=== PATIENT | female | born 1940 | race Caucasian/White ===

== ENCOUNTER 2019-04-13 12:12 | Emergency (ER) | payer MEDICARE, OTHER ==
[~2019-04-13] VITALS: Ht 162.6 cm; Wt 74.8 kg
[~2019-04-13 12:12] MED LIST: AMLO5TAB9 PO; COLE1TAB2 PO; EZET10TA16 PO; GLIP5TAB13 PO; HYDR-3642 PO; HYDR-3976 PO; SITA1TAB6 PO; VALS160T2 PO
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
[2019-04-13] MEDS ORDERED: ACETAMINOPHEN ES 500 MG TABLET PO ONE (13:00)
[2019-04-13] MEDS ORDERED: IBUPROFEN 600 MG TABLET PO ONE ×2 (13:00→13:06)
[2019-04-13] MEDS ORDERED: ACETAMINOPHEN ES 500 MG TABLET ONE (13:06)
[2019-04-13 14:45] VITALS: BP 160/90
--- NOTE | 2019-04-13 14:45 | NUR ---
Patient discharged to home in stable condition. Written and verbal after care instructions given. Patient verbalizes understanding of instruction.
== END 2019-04-13 14:46 | disposition home or self-care (01) ==
LOC: ER 12:16
DX: S20.211A Contusion of right front wall of thorax, initial encounter (principal); S80.02XA Contusion of left knee, initial encounter; S80.01XA Contusion of right knee, initial encounter; I10 Essential (primary) hypertension; E11.9 Type 2 diabetes mellitus without complications; Z90.89 Acquired absence of other organs; Z98.890 Other specified postprocedural states; Z88.0 Allergy status to penicillin; Z79.899 Other long term (current) drug therapy; V49.49XA Driver injured in collision with other motor vehicles in traffic accident, initial encounter; Y93.89 Activity, other specified; Y92.413 State road as the place of occurrence of the external cause; Y99.8 Other external cause status
CPT/HCPCS: 71100-TC; 72050-TC; 73564-TC

== ENCOUNTER 2020-11-09 15:25 | Emergency (ER) | payer MEDICARE, OTHER ==
[~2020-11-09] VITALS: Ht 162.6 cm; Wt 75.3 kg
[~2020-11-09 15:25] MED LIST changes: +AMLO-212 PO; -AMLO5TAB9 PO; -EZET10TA16 PO; +EZET10TA6 PO
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
[2020-11-09] MEDS ORDERED: ACETAMINOPHEN ES 500 MG TABLET ONE (15:58)
[2020-11-09] MEDS ORDERED: ACETAMINOPHEN ES 500 MG TABLET PO ONE (16:00)
[2020-11-09 16:45] VITALS: BP 138/71
--- NOTE | 2020-11-09 16:46 | NUR ---
Patient discharged to home in stable condition. Written and verbal after care instructions given. Patient verbalizes understanding of instruction.
== END 2020-11-09 16:45 | disposition home or self-care (01) ==
LOC: ER 15:29
DX: R07.89 Other chest pain (principal); I10 Essential (primary) hypertension; E11.9 Type 2 diabetes mellitus without complications; Z90.89 Acquired absence of other organs; Z98.890 Other specified postprocedural states; Z88.0 Allergy status to penicillin; Z79.899 Other long term (current) drug therapy; W18.39XA Other fall on same level, initial encounter; Y93.89 Activity, other specified; Y92.89 Other specified places as the place of occurrence of the external cause; Y99.8 Other external cause status
CPT/HCPCS: 71250-TC; 72125-TC